=== PATIENT | female | born 1985 ===

== ENCOUNTER 2018-07-21 11:37 | Inpatient (IN) | payer MEDICAID ==
[2018-07-21 13:14] VITALS: O2SAT 100
[2018-07-21 13:58] LABS: BASO % 0.2 % (0.0-2.0); EOS # 0.1 K/uL (0.0-0.7); EOS % 1.1 % (0.0-4.0); HEMOGLOBIN 13.7 g/dL (12.0-16.0); LYMPH # 2.5 K/uL (1.0-4.3); LYMPH % 20.7 % (20.0-40.0); MEAN CELL VOLUME 100.5 fl (81.0-99.0); MEAN CORPUSCULAR HEMOGLOBIN 32.2 pg (27.0-31.0); MEAN CORPUSCULAR HGB CONC 32.1 g/dL (33.0-37.0); MEAN PLATELET VOLUME 8.4 fl (7.2-11.7); MONO # 0.5 K/uL (0.0-0.8); MONO % 4.3 % (0.0-10.0); NEUT # 8.8 K/uL (1.8-7.0); NEUT % 73.7 % (50.0-75.0); NRBC % 0.1 % (0.0-0.0); RBC 4.26 Mil/uL (3.80-5.20)
[2018-07-21 14:05] LABS: ALB/GLOB RATIO 1.1 (1.0-2.1); ALBUMIN 4.4 g/dL (3.5-5.0); ALT/SGPT 40 U/L (9-52); AST/SGOT 27 U/L (14-36); BLOOD UREA NITROGEN 16 mg/dl (7-17); CALCIUM 9.2 mg/dL (8.4-10.2); GFR NON-AFRICAN AMERICAN > 60
[2018-07-21 14:07] LABS: ACETAMINOPHEN < 10.0 ug/ml (10.0-30.0); SALICYLATE < 1.0 mg/dl
--- NOTE | 2018-07-21 14:30 | ED PDOC ---
HPI: Psych/Substance Abuse Chief Complaint (Nursing): Psychiatric Evaluation Chief Complaint (Provider): Psychiatric Evaluation History Per: Patient History/Exam Limitations: no limitations Onset/Duration Of Symptoms: Hrs Current Symptoms Are (Timing): Still Present Additional Complaint(s): Patient is a 33 y/o female with a PMHx of asthma and depression who was BIBA to ED for evaluation of possible suicidal ideation. Patient recently found out her boyfriend of 14 years was cheating on her. Furthermore, she states she had a left shoulder surgery at the end of May and has been experiencing chronic pain since. Last night she took 18 tablets of 200 mg Advil divided between midnight and 3:00-4:00. In addition, she said that she had taken 1 Eva for the pain. She texted one of her friends that she wanted to "kill herself." Patient states she was not trying to cause harm to herself, and was just taking medication to provide relief for the pain. 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 The patient denies N/V/D, CP, or dizziness. Patient later stated that she was trying to numb the pain. PCP: None Provided Past Medical History Reviewed: Historical Data, Nursing Documentation, Vital Signs Vital Signs: Last Vital Signs Temp 99.4 F 07/21/18 11:40 Pulse 109 H 07/21/18 11:40 Resp 18 07/21/18 11:40 BP 128/79 07/21/18 11:40 Pulse Ox 100 07/21/18 11:40 - Medical History PMH: Asthma, Depression Denies: Diabetes, Hepatitis, HIV, HTN, Seizures, Sexually Transmitted Disease - Surgical History Other surgeries: Left Shoulder Surgery - Family History Family History: States: Unknown Family Hx - Home Medications Home Medications: Ambulatory Orders Medication Instructions Recorded Albuterol Sulfate [Ventolin Hfa] 1 puff INH 12 PRN 07/21/18 Fexofenadine/Pseudoephedrine 1 tab PO DAILY 07/21/18 [Eva-D 24 Hour Tablet] Naproxen Sodium [Aleve] 1 tab PO AC PRN 07/21/18 - Allergies Allergies/Adverse Reactions: Allergies Allergy/AdvReac Type Severity Reaction Status Date / Time No Known Allergies Allergy Verified 07/21/18 11:43 Review of Systems ROS Statement: Except As Marked, All Systems Reviewed And Found Negative Cardiovascular: Negative for: Chest Pain Gastrointestinal: Negative for: Nausea, Vomiting, Diarrhea Musculoskeletal: Positive for: Shoulder Pain (Left, Chronic) Neurological: Negative for: Dizziness Psych: Positive for: Suicidal ideation, Other (Hallucinations) Physical Exam - Reviewed Nursing Documentation Reviewed: Yes Vital Signs Reviewed: Yes - Physical Exam Appears: Positive for: No Acute Distress Head Exam: Positive for: ATRAUMATIC, NORMAL INSPECTION, NORMOCEPHALIC Skin: Positive for: Normal Color Eye Exam: Positive for: Normal appearance ENT: Positive for: Normal ENT Inspection Neck: Positive for: Normal Cardiovascular/Chest: Positive for: Regular Rate, Rhythm Respiratory: Positive for: Normal Breath Sounds Gastrointestinal/Abdominal: Positive for: Normal Exam Extremity: Positive for: Normal ROM Neurologic/Psych: Positive for: Alert, Oriented. Negative for: Motor/Sensory Deficits - Laboratory Results Result Diagrams: 07/21/18 13:50 07/21/18 13:50 - ECG O2 Sat by Pulse Oximetry: 100 (RA) Pulse Ox Interpretation: Normal Medical Decision Making Medical Decision Making: Time: 1233 Plan: Poison control EKG: done: sinus, HR 80s, non-specific T wave abnormality diffusely. Serum [Beta-HCG, Quantitative] CMP Crisis Evaluation Urine U/A CXR CBC RN spoke with poison Control who state that there is low concern for adverse effect after taking the number of Advil stated. Requesting Acetaminophen and Salicylate levels. 13:30: pt became agitated stating that she would leave and refusing to return to her room, stating that she wanted to speak with her divorce attorney. She was uncooperative and yelling profanity. Haldol/Ativan and 4 point restraints ordered however patient calmed down and these were not necessary/not given. Time: 1400 Seen by warehouse worker 2nd shift who states that Dr. Durham feels that patient should be admitted. Patient refusing to cooperate. Will be screened by [facility] for possible admission. 23:50: pt agrees to sign herself in voluntarily for psychiatric treatment. Pt to be admitted under Dr. Durham for depression. Scribe Attestation: Documented by Tejas Hines, acting as a scribe for Brittnee HINES. Provider Scribe Attestation: All medical record entries made by the Scribe were at my direction and personally dictated by me. I have reviewed the chart and agree that the record accurately reflects my personal performance of the history, physical exam, medical decision making, and the department course for this patient. I have also personally directed, reviewed, and agree with the discharge instructions and disposition. Disposition - Clinical Impression Clinical Impression: Depression - Patient ED Disposition Is Patient to be Admitted: Transfer of Care Discussed With : Denae Durham - Disposition Disposition: Transfer of Care Disposition Time: 00:10 Condition: FAIR
--- NOTE | 2018-07-21 15:20 | RAD ---
Date of service: 07/21/2018 HISTORY: baseline COMPARISON: No prior. FINDINGS: LUNGS: No active pulmonary disease. PLEURA: No significant pleural effusion identified, no pneumothorax apparent. CARDIOVASCULAR: No atherosclerotic calcification present Normal. OSSEOUS STRUCTURES: No significant abnormalities. VISUALIZED UPPER ABDOMEN: Normal. OTHER FINDINGS: None. IMPRESSION: No active disease.
[2018-07-21 20:33] LABS: BARBITURATES, UR NEGATIVE (NEGATIVE); BENZODIAZEPINES, UR NEGATIVE (NEGATIVE); OPIATES, UR NEGATIVE (NEGATIVE); PHENCYCLIDINE, UR NEGATIVE (NEGATIVE)
[2018-07-21 21:38] LABS: SQUAMOUS EPITHIAL 13 /hpf (0-5); URINE BACTERIA MANY (<OCC); URINE BILIRUBIN NEGATIVE (NEGATIVE); URINE BLOOD MODERATE (NEGATIVE); URINE COLOR YELLOW (YELLOW); URINE GLUCOSE (UA) NEG (NEGATIVE); URINE LEUKOCYTE ESTERASE TRACE Leu/uL (Negative); URINE PROTEIN 30 mg/dL (NEGATIVE); URINE UROBILINOGEN 0.2-1.0 mg/dL (0.2-1.0)
--- NOTE | 2018-07-21 22:28 | CARD ---
APPROVED REPORT Date of service: 07/21/2018 EKG Measurement Heart [id number] <Conclusion> Normal sinus rhythm Nonspecific T wave abnormality Abnormal ECG
[2018-07-21 22:49] LABS: URINE CLARITY CLOUDY (Clear)
[2018-07-22] MEDS ORDERED: DiphenhydrAMINE 50 mg/ml Inj IM PRN (01:46)
[2018-07-22] MEDS ORDERED: Magnesium Hydroxide Susp 30 ml UD PO PRN (01:46)
[2018-07-22] MEDS ORDERED: Alum-Mag Hydrox-Simethicone Susp (30 mL) PO PRN (01:46)
[2018-07-22 02:10] VITALS: RESP 18
--- NOTE | 2018-07-22 02:47 | PCM.BM ---
Treatment Plan Problems - Problems identified on initial assessmt Medication nonadherence Date Initiated: 07/22/18 Time Initiated: 02:45 Assessment reference: NA Status: Active Altered Sleep Patterns Date Initiated: 07/22/18 Time Initiated: 02:45 Assessment reference: NA Status: Active Treatment assets and liabiliti Patient Assests: cooperative, self-reliant, ADL independent, physically healthy, negotiates basic needs Patient Liabilities: poor support system, relationship conflicts - Milieu Protocol Maintain good personal hygiene: daily Encourage regular showers, every shift Remind patient to perform daily oral care Conduct patient checks and document Observation sheet: Q15 minutes Maintain personal safety: every shift Educate patient to report safety concerns to staff, every shift Monitor environment for contraband/sharps Medication safety: Monitor for expected outcome, potential side effects: every shift, Assess barriers to learning: every shift, Assess readiness for medication education: every shift
[2018-07-22 10:13] LABS: T4 7.57 ug/dl (5.5-11.0)
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
[2018-07-22] MEDS: Naproxen 500 MG TAB PO PRN (21:24)
[2018-07-23] MEDS: Naproxen 500 MG TAB PO PRN (09:10)
[2018-07-23 09:59] VITALS: BP 121/81; PULSE 84; TEMP 98.7
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
== END 2018-07-23 19:13 | disposition home or self-care (01) | DRG 430 ==
LOC: H.ER 11:37 → H.ERHOLD 07-22 00:10 → H.PSYCH 07-22 01:37
PROVIDERS: ADMIT Psychiatry & Neurology Psychiatry; ATTEND Psychiatry & Neurology Psychiatry
PROC: GZ51ZZZ Individual Psychotherapy, Behavioral (ICD-10-PCS; principal; 2018-07-22)
PROC: GZ56ZZZ Individual Psychotherapy, Supportive (ICD-10-PCS; 2018-07-22)
DX: F31.9 Bipolar disorder, unspecified (principal); F43.10 Post-traumatic stress disorder, unspecified; G89.29 Other chronic pain; J45.909 Unspecified asthma, uncomplicated; R45.851 Suicidal ideations; Z87.828 Personal history of other (healed) physical injury and trauma; Z79.899 Other long term (current) drug therapy; G47.9 Sleep disorder, unspecified; M54.9 Dorsalgia, unspecified; Z91.410 Personal history of adult physical and sexual abuse; M25.512 Pain in left shoulder; M25.511 Pain in right shoulder